=== PATIENT | male | born 1975 | race Caucasian/White ===

== ENCOUNTER 2017-04-26 08:00 | Outpatient (CLI) | payer BC ==
[2017-04-26] MEDS ORDERED: IOHEXOL 180 MG/ML 10 ML VIAL. IT ONE (08:30)
[2017-04-26] MEDS ORDERED: CONTRAST GIVEN MC PRN (08:30)
[2017-04-26] MEDS ORDERED: LIDOCAINE 1% / SOD BICARB 8.4% 20 ML VIAL. IJ ONE (08:30)
[2017-04-26 09:42] VITALS: BP 128/70
--- NOTE | 2017-04-26 10:54 | RAD ---
Lumbar myelogram, 04/26/2017: History: Back and leg pain Under local anesthesia, aseptic conditions and fluoroscopic guidance a lumbar puncture was performed at the mid L3 level utilizing a 25-gauge Cici spinal needle. Good clear CSF flow was obtained following which 15 cc of Omnipaque 180 was injected into the thecal sac. The spinal needle was then removed and appropriate digital imaging performed. 2.3 minutes of fluoroscopy time was utilized. 14 fluoroscopic spot images were recorded. The patient tolerated the procedure well and was sent to CT in good condition. The following findings are delineated on the myelogram: 1. There is mild disc space narrowing with endplate sclerosis and spurring at the L4-5 level. There is a mild grade 1 spondylolisthesis at L4-5 in the upright position. There is 3-4 mm of anterior subluxation of L4 relative to L5 in the neutral position, which increases slightly with flexion. There is a moderate associated anterior extradural defect at this level. 2. There is poor opacification of the L4 and L3 nerve root sleeves bilaterally. 3. No other significant intradural or extradural abnormality is detected. CT of the lumbar spine-post myelogram, 04/26/2017: Multidetector CT imaging was performed with multiplanar reconstructions produced. The following findings are delineated: 1. No significant posterior disc bulge is identified at L1-2 or L2-3. The central spinal canal and neural foramina are well preserved. 2. At L3-4 there is minimal broad-based posterior disc bulging. The central spinal canal and neural foramina are well maintained. 3. At L4-5 there is a moderate broad-based posterior disc protrusion. There is bilateral spondylolysis at L4. In the supine position for the CT study there is only slight anterolisthesis at L4-5. There is moderate degenerative change involving the L4-5 facet joints. The central spinal canal is not significantly stenotic. The combination of findings is causing severe foraminal encroachment, worse on the right. 4. At L5-S1 there is mild broad-based posterior disc bulging. There are minimal sclerotic changes involving the facet joints. The central spinal canal is well-preserved. There is mild bilateral foraminal narrowing. IMPRESSION: 1. Bilateral spondylolysis at L4 with a grade 1 spondylolisthesis at L4-5, most prominent in the upright position with flexion. 2. Severe associated foraminal stenosis at L4-5, right greater than left.
== END 2017-04-26 10:01 | disposition home or self-care (01) ==
LOC: RAD 08:00
PROVIDERS: ATTEND Neurological Surgery
DX: M51.16 Intervertebral disc disorders with radiculopathy, lumbar region (principal); M43.16 Spondylolisthesis, lumbar region; M48.061 Spinal stenosis, lumbar region without neurogenic claudication; J44.9 Chronic obstructive pulmonary disease, unspecified; Z87.891 Personal history of nicotine dependence
CPT/HCPCS: 72132; 72265

== ENCOUNTER → 2017-06-07 | Outpatient (CLI) | payer BC ==
[2017-06-07 15:40] LABS: ADD MAN DIFF? NO
[2017-06-07 15:42] LABS: BASO % 0 % (0-3); EOS % 0 % (0-3); HEMATOCRIT 44.5 % (39.0-53.0); LYMPH # 1.4 x10^3/uL (1.0-4.8); LYMPH % 16 % (24-48); MEAN CORPUSCULAR HEMOGLOBIN 33 pg (25-35); MEAN CORPUSCULAR HGB CONC 34 g/dL (31-37); MEAN CORPUSCULAR VOLUME 99 fL (79-100); MONO # 0.6 x10^3/uL (0.0-1.1); MONO % 7 % (0-9); NEUT # 6.7 x10^3uL (1.8-7.7); NEUT % 76 % (31-73); PLATELET COUNT 291 x10^3/uL (140-400); RED BLOOD COUNT 4.51 x10^6/uL (4.30-5.70); RED CELL DISTRIBUTION WIDTH 13.3 % (11.5-14.5); WHITE BLOOD COUNT 8.8 x10^3/uL (4.0-11.0)
[2017-06-07 15:59] LABS: PARTIAL THROMBOPLASTIN TIME 26 SEC (24-38); PROTHROMBIN TIME PATIENT 12.5 SEC (11.7-14.0)
[2017-06-07 16:05] LABS: ALBUMIN 4.7 g/dL (3.4-5.0); ALBUMIN/GLOBULIN RATIO 1.4 (1.0-1.7); ALK PHOS 42 U/L (46-116); ALT (SGPT) 65 U/L (16-63); ANION GAP 16 (6-14); AST (SGOT) 60 U/L (15-37); BLOOD UREA NITROGEN 4 mg/dL (8-26); BUN/CREATININE RATIO 6 (6-20); CALCIUM 9.2 mg/dL (8.5-10.1); CARBON DIOXIDE 24 mmol/L (21-32); CHLORIDE 96 mmol/L (98-107); CREATININE 0.7 mg/dL (0.7-1.3); GFR 124.9; GLUCOSE 87 mg/dL (70-99); SODIUM 136 mmol/L (136-145); TOTAL BILIRUBIN 0.6 mg/dL (0.2-1.0)
[2017-06-08 03:15] LABS: MRSA BY PCR Negative (Negative)
== END | disposition home or self-care (01) ==
LOC: SURGPAT 13:32
DX: Z01.818 Encounter for other preprocedural examination (principal); M54.16 Radiculopathy, lumbar region; M48.061 Spinal stenosis, lumbar region without neurogenic claudication; M43.16 Spondylolisthesis, lumbar region
CPT/HCPCS: 36415; 76000; 80053; 85025; 85610; 85730; 87641